=== PATIENT | female | born 1990 | race Caucasian/White ===

== ENCOUNTER 2016-09-12 11:37 | Emergency (ER) | payer BC ==
[2016-09-12] MEDS ORDERED: NS 0.9% 1000 ML* 1,000 ML IV ONE ×2 (11:52→14:16)
[2016-09-12] MEDS ORDERED: Ketorolac INJ* 60 MG/2 ML VIAL IM ONE (12:37)
[2016-09-12 12:47] LABS: Hematocrit 36 % (35-47); Hemoglobin 11.7 g/dl (12.0-16.0); Mean Corpuscular HGB Conc 32 g/dl (31-36); Mean Corpuscular Hemoglobin 27 pg (27-31); Mean Corpuscular Volume 82 fL (80-97); Mean Platelet Volume 8 um3 (7.4-10.4); Red Blood Count 4.42 10^6/ul (4.0-5.4); Red Cell Distribution Width 17 % (10.5-15); White Blood Count 16.2 10^3/ul (3.5-10.8)
[2016-09-12] MEDS ORDERED: Ketorolac INJ* 60 MG/2 ML VIAL IV PUSH ONE (12:48)
[2016-09-12] MEDS ORDERED: Ketorolac INJ* 30 MG/ML 1 ML VIAL ONE (12:49)
[2016-09-12] MEDS ORDERED: Ketorolac INJ* 30 MG/ML 1 ML VIAL IV PUSH ONE (12:55)
[2016-09-12 12:57] LABS: Albumin 4.1 g/dL (3.2-5.2); BUN/Creatinine Ratio 12.5 (8-20); Calcium 9.3 mg/dL (8.6-10.3); EGFR African American 91.8 (>60); EGFR Non-African American 71.4 (>60); Globulin 3.1 g/dL (2-4); Potassium 3.5 mmol/L (3.5-5.0); Total Bilirubin 0.5 mg/dL (0.2-1.0); Total Protein 7.2 g/dL (6.4-8.9)
[2016-09-12 13:02] LABS: Urine Bacteria 1+ (Absent); Urine Bilirubin Negative (Negative); Urine Glucose Negative (Negative); Urine Nitrite Negative (Negative)
--- NOTE | 2016-09-12 13:59 | RAD ---
INDICATION: Left-sided flank pain. COMPARISON: There are no prior studies available for comparison. TECHNIQUE: A CT scan of the abdomen and pelvis was performed without intravenous or oral contrast. Contiguous axial sections were obtained from the lung bases through the symphysis pubis. Images were reconstructed in the coronal and sagittal planes. FINDINGS: The lung bases are clear. No pleural effusion is present. The liver and spleen are mildly enlarged without focal abnormality on this noncontrast study. No calcified gallstones are seen. The pancreas appears to be within normal limits. The adrenal glands and kidneys are normal in size. No renal calculi or hydronephrosis is seen. No ureteral or bladder calculi are seen. The aorta is normal in caliber without significant calcific plaque. No significant enlarged retroperitoneal lymph nodes are seen. The exam of this region is limited due to a paucity of abdominal fat. The stomach, small and large bowel appear nondistended. The appendix is not well-defined. There is a large amount retained stool within the colon. The uterus is retroverted in position and normal in size. No free intraperitoneal air or fluid is seen. There is a moderate lumbar scoliosis convex toward the left side. No significant focal osseous abnormality is seen. IMPRESSION: 1. NO HYDRONEPHROSIS, RENAL OR URETERAL CALCULI ARE SEEN. 2. LARGE AMOUNT OF RETAINED STOOL.
[2016-09-12] MEDS ORDERED: Ciprofloxacin 400MG IVPREMIX(* 400 MG/200 ML BAG IVPB ONE (14:03)
--- NOTE | 2016-09-12 14:04 | ED ---
GI/ HPI - HPI Summary HPI Summary: 26 female presents accompanied by friends with complaints of left flank pain, fever/chills, urinary frequencyn some incontinence and urgency that began yesterday 09/11/16. Patient denies nausea/vomiting, burning, blood in urine, change in bowel movement, genitalia symptoms and chest pain. She admits to previous UTI's. Denies history of kidney stone and pyelonephritits. States she experiences incontinence at times that has been ongoing ever since her first UTI 2 years ago. It has worsened since recent symptoms. Admits to family history of her grandmother and sister having kidney stones at young ages. She has taken ibuprofen every 6 hours since yesterday, last dose being around 7am today. Does give her relief. She did not take her temperature she just has had cold chills and felt very warm. Denies abdominal pain and vaginal symptoms. Denies as her LMP was 09/09/16. - History of Current Complaint Chief Complaint: EDFlankPain Time Seen by Provider: 09/12/16 12:07 Stated Complaint: BACK PAIN Hx Obtained From: Patient Onset/Duration: Started Days Ago, Still Present, Worse Since Timing: Constant Severity: Mild Current Severity: Moderate Pain Intensity: 5 Location of Pain: Flank - left Pain Characteristics: Sharp, Aching Associated Signs and Symptoms: Positive: Fever, Flank Pain, UTI Symptoms Foreign Body: Toxic Aggravating Factor(s): Movement Alleviating Factor(s): Rest, Position - laying on left side, OTC Analgesics - Allergy/Home Medications Allergies/Adverse Reactions: Allergies Allergy/AdvReac Type Severity Reaction Status Date / Time No Known Allergies Allergy Verified 09/12/16 12:27 PMH/Surg Hx/FS Hx/Imm Hx Respiratory History: Denies: Hx Asthma History: Reports: Other Problems/Disorders - UTI Denies: Hx Kidney Stones Musculoskeletal History: Denies: Hx Arthritis - Surgical History Surgery Procedure, Year, and Place: jaw surgery - Immunization History Date of Tetanus Vaccine: UTD Immunizations Up to Date: Yes Infectious Disease History: No Infectious Disease History: Denies: Traveled Outside the [place] in Last 30 Days - Family History Known Family History: Positive: Other - kidney stone grandmother, sister - Social History Alcohol Use: Rare Substance Use Type: Reports: None Smoking Status (MU): Never Smoked Tobacco Review of Systems Positive: Fever, Chills, Fatigue Eyes: Negative ENT: Negative Cardiovascular: Negative Respiratory: Negative Gastrointestinal: Negative Positive: frequency, flank pain, incontinence, pain, urgency. Negative: burning , dysuria, discharge, hematuria Musculoskeletal: Negative Skin: Negative Neurological: Negative Psychological: Normal All Other Systems Reviewed And Are Negative: Yes Physical Exam Triage Information Reviewed: Yes Vital Signs On Initial Exam: Initial Vitals Temp Pulse Resp BP Pulse Ox 99.6 F 100 16 111/71 100 09/12/16 11:40 09/12/16 11:40 09/12/16 11:40 09/12/16 11:40 09/12/16 11:40 tachycardia and low grade fever noted. Vital Signs Reviewed: Yes Appearance: Positive: No Pain Distress, Well-Nourished, Ill-Appearing Skin: Positive: Warm - hot to touch, Skin Color Reflects Adequate Perfusion, Dry. Negative: Cold, Cyanosis @, Diaphoretic Head/Face: Positive: Normal Head/Face Inspection Eyes: Positive: Normal, Conjunctiva Clear ENT: Positive: Normal ENT inspection, Hearing grossly normal, Pharynx normal Neck: Positive: Supple, Nontender, No Lymphadenopathy Respiratory/Lung Sounds: Positive: Clear to Auscultation, Breath Sounds Present. Negative: Wheezes Cardiovascular: Positive: Normal, RRR, Pulses are Symmetrical in both Upper and Lower Extremities Abdomen Description: Positive: Nontender, No Organomegaly, Soft, CVA Tenderness (L) - with some tenderness radiating and with deep palpation into left mid abdomen. Negative: CVA Tenderness (R), Distended, Guarding, McBurney's Point Tenderness, Peritoneal Signs, Pulsatile Mass Bowel Sounds: Positive: Present Pelvic Exam: Positive: external exam normal - per patient Musculoskeletal: Positive: Normal, Strength/ROM Intact Neurological: Positive: Normal, Sensory/Motor Intact, Alert, Oriented to Person Place, Time, Normal Gait Psychiatric: Positive: Normal AVPU Assessment: Alert - [place] Coma Scale Coma Scale Total: 15 Diagnostics - Vital Signs Vital Signs Temp Pulse Resp BP Pulse Ox 09/12/16 12:05 99.6 F 100 15 111/71 97 09/12/16 11:40 99.6 F 100 16 111/71 100 - Laboratory Lab Results: Lab Results 09/12/16 09/12/16 09/12/16 Range/Units 12:05 12:25 12:25 WBC 16.2 H (3.5-10.8) 10^3/ul RBC 4.42 (4.0-5.4) 10^6/ul Hgb 11.7 L (12.0-16.0) g/dl Hct 36 (35-47) % MCV 82 (80-97) fL MCH 27 (27-31) pg MCHC 32 (31-36) g/dl RDW 17 H (10.5-15) % Plt Count 252 (150-450) 10^3/ul MPV 8 (7.4-10.4) um3 Neut % (Auto) 91.6 H (38-83) % Lymph % (Auto) 4.5 L (25-47) % [place] % (Auto) 3.6 (1-9) % Eos % (Auto) 0 (0-6) % Baso % (Auto) 0.3 (0-2) % Absolute Neuts (auto) 14.8 H (1.5-7.7) 10^3/ul Absolute Lymphs (auto) 0.7 L (1.0-4.8) 10^3/ul Absolute Monos (auto) 0.6 (0-0.8) 10^3/ul Absolute Eos (auto) 0 (0-0.6) 10^3/ul Absolute Basos (auto) 0.1 (0-0.2) 10^3/ul Absolute Nucleated RBC 0 10^3/ul Nucleated RBC % 0 Sodium 132 L (133-145) mmol/L Potassium 3.5 (3.5-5.0) mmol/L Chloride 98 L (101-111) mmol/L Carbon Dioxide 27 (22-32) mmol/L Anion Gap 7 (2-11) mmol/L BUN 12 (6-24) mg/dL Creatinine 0.96 H (0.51-0.95) mg/dL Est GFR ( Amer) 91.8 (>60) Est GFR (Non-Af Amer) 71.4 (>60) BUN/Creatinine Ratio 12.5 (8-20) Glucose 107 H (70-100) mg/dL Lactic Acid (0.5-2.0) mmol/L Calcium 9.3 (8.6-10.3) mg/dL Total Bilirubin 0.50 (0.2-1.0) mg/dL AST 17 (13-39) U/L ALT 16 (7-52) U/L Alkaline Phosphatase 40 (34-104) U/L Total Protein 7.2 (6.4-8.9) g/dL Albumin 4.1 (3.2-5.2) g/dL Globulin 3.1 (2-4) g/dL Albumin/Globulin Ratio 1.3 (1-3) Urine Color Straw Urine Appearance Clear Urine pH 7.0 (5-9) Ur Specific [place] 1.004 L (1.010-1.030) Urine Protein Negative (Negative) Urine Ketones Negative (Negative) Urine Blood 1+ H (Negative) Urine Nitrate Negative (Negative) Urine Bilirubin Negative (Negative) Urine Urobilinogen Negative (Negative) Ur Leukocyte Esterase Negative (Negative) Urine WBC (Auto) Absent (Absent) Urine RBC (Auto) Trace(0-2/hpf) (Absent) Ur Squamous Epith Cells Present H (Absent) Urine Bacteria 1+ H (Absent) Urine Glucose Negative (Negative) 09/12/16 Range/Units 12:25 WBC (3.5-10.8) 10^3/ul RBC (4.0-5.4) 10^6/ul Hgb (12.0-16.0) g/dl Hct (35-47) % MCV (80-97) fL MCH (27-31) pg MCHC (31-36) g/dl RDW (10.5-15) % Plt Count (150-450) 10^3/ul MPV (7.4-10.4) um3 Neut % (Auto) (38-83) % Lymph % (Auto) (25-47) % [place] % (Auto) (1-9) % Eos % (Auto) (0-6) % Baso % (Auto) (0-2) % Absolute Neuts (auto) (1.5-7.7) 10^3/ul Absolute Lymphs (auto) (1.0-4.8) 10^3/ul Absolute Monos (auto) (0-0.8) 10^3/ul Absolute Eos (auto) (0-0.6) 10^3/ul Absolute Basos (auto) (0-0.2) 10^3/ul Absolute Nucleated RBC 10^3/ul Nucleated RBC % Sodium (133-145) mmol/L Potassium (3.5-5.0) mmol/L Chloride (101-111) mmol/L Carbon Dioxide (22-32) mmol/L Anion Gap (2-11) mmol/L BUN (6-24) mg/dL Creatinine (0.51-0.95) mg/dL Est GFR ( Amer) (>60) Est GFR (Non-Af Amer) (>60) BUN/Creatinine Ratio (8-20) Glucose (70-100) mg/dL Lactic Acid 1.1 (0.5-2.0) mmol/L Calcium (8.6-10.3) mg/dL Total Bilirubin (0.2-1.0) mg/dL AST (13-39) U/L ALT (7-52) U/L Alkaline Phosphatase (34-104) U/L Total Protein (6.4-8.9) g/dL Albumin (3.2-5.2) g/dL Globulin (2-4) g/dL Albumin/Globulin Ratio (1-3) Urine Color Urine Appearance Urine pH (5-9) Ur Specific [place] (1.010-1.030) Urine Protein (Negative) Urine Ketones (Negative) Urine Blood (Negative) Urine Nitrate (Negative) Urine Bilirubin (Negative) Urine Urobilinogen (Negative) Ur Leukocyte Esterase (Negative) Urine WBC (Auto) (Absent) Urine RBC (Auto) (Absent) Ur Squamous Epith Cells (Absent) Urine Bacteria (Absent) Urine Glucose (Negative) Result Diagrams: 09/12/16 12:25 09/12/16 12:25 Lab Statement: Any lab studies that have been ordered have been reviewed, and results considered in the medical decision making process. - CT abdomen/pelvis CT Interpretation: No Acute Changes - 1. NO HYDRONEPHROSIS, RENAL OR URETERAL CALCULI ARE SEEN. 2. LARGE AMOUNT OF RETAINED STOOL. CT Interpretation Completed By: Radiologist Re-Evaluation - Re-Evaluation First Eval Re-Evaluation Time: 13:15 Change: Improved - had some relief after fluids and toradol Second Eval Re-Evaluation Time: 14:20 Change: Improved Comment: feeling better would not like any more pain medication. is not nauseous. will give more fluids and antibiotic started. Third Eval Re-Evaluation Time: 14:45 Change: Worse - vitals worsening, tachy, hypotension and increasing fever. given tyelnol and waiting for 2 bag of fluids and cipro adminstration GIGU Course/Dx - Course Course Of Treatment: Labs, UA and CT abdomen/pelvis ordered. Patient did have elevated WBC with left shift. Lactic acid was <2. Given fluids, cipro IV and toradol for pain. Tylenol later given for increasing temp. CT ordered due to urinalyis not looking terrible and family history of kidney stones at young age , it was unremarkable. Discussed case with Dr Hernandez, inpatient vs outpatient treamtent. Patient was walked around and states she would like to be treated at home. Patient is reliable to take outpatient medications. She is aware of worsening signs and symptoms and told to return if they persist. Culture results will be relayed and carefully checked to be sure covers bacteria. - Diagnoses Differential Diagnoses - Female: Bladder Dysfunction, Cystitis, Pyelonephritis, Renal Calculi, Renal Colic, Sepsis, Urinary Tract Infection Provider Diagnoses: Pyelonephritis - Physician Notifications Discussed Care Of Patient With: Dr Hernandez Discharge - Discharge Plan Condition: Stable Disposition: HOME Prescriptions: Ciprofloxacin TAB* [Cipro 500 MG TAB*] 500 mg PO BID #20 tab Patient Education Materials: Acute Pyelonephritis (ED) Forms: *School Release Referrals: No Primary Care Phys,NOPCP [Primary Care Provider] - [facility] [Outside] Jaun Kauffman MD [Medical Doctor] - Additional Instructions: Take prescribed antibiotic medication as directed. Take one pill tonight before bedtime and then twice a day. Recommend antibiotics in-between doses to replenish normal kendy. Continue taking tylenol/ibuprofen every 4 hours alternating. Practice keegle exercises as we discussed. Recommend follow up with specialist to inquire more about incontinence. If you develop worsening signs and symptoms or symptoms persist despite treatment please return promptly. Worsening signs and symptoms include: high fevers, uncontrollable fever, nausea , vomiting, increasing pain accompanied with blood in urine. Follow up with PCP or [facility].
[2016-09-12] MEDS ORDERED: Acetaminophen TAB* 325 MG PO ONE (14:40)
[2016-09-12 17:05] VITALS: BP 115/71
== END 2016-09-12 17:34 | disposition home or self-care (01) ==
LOC: ED 11:37
DX: N12 Tubulo-interstitial nephritis, not specified as acute or chronic (principal); R50.9 Fever, unspecified; R10.84 Generalized abdominal pain
CPT/HCPCS: 36415; 74176; 80053; 81003; 81015; 83605; 85025; 87077; 87086; 96372; 96374; 99283; A9270-GY; J0744; J1885